=== PATIENT | female | born 1940 ===

== ENCOUNTER 2019-01-18 09:50 | Emergency (ER) | payer MEDICAID ==
[2019-01-18 09:51] VITALS: BMI 26.0
[2019-01-18 10:09] VITALS: RESP 18
--- NOTE | 2019-01-18 10:19 | ED PDOC ---
Arrival/HPI - General Historian: Patient - History of Present Illness Narrative History of Present Illness (Text): 01/18/19 10:21 78-year-old female with past medical history of diabetes on insulin, presents to the emergency room for wound check to the great toes of bilateral foot. Patient states that she was seen at [facility] on 01/13/2019 for similar symptoms and was placed on Keflex, she states that she has an appointment scheduled with her morphologist on Sunday01/22/19. She presents today to the emergency room due to pain to her great toes, and she wants to ensure that she does not have an infection to her toes today. Otherwise she reports no fever, chills, swelling, redness, numbness. Patient has no other complaints <Yancy Parnell PA-C - Last Filed: 01/18/19 10:36> <Mathew Lewis - Last Filed: 01/18/19 12:44> - General Time Seen by Provider: 01/18/19 09:54 Past Medical History - Cardiac Hx Hypertension: Yes - Endocrine/Metabolic Hx Diabetes Mellitus Type 2: Yes Hx Hypothyroidism: Yes - Psychiatric Hx Substance Use: No - Anesthesia Hx Anesthesia: No <Yancy Parnell PA-C - Last Filed: 01/18/19 10:36> Family/Social History Family/Social History: No Known Family HX Smoking Status: Never Smoked Hx Alcohol Use: No Hx Substance Use: No <Yancy Parnell PA-C - Last Filed: 01/18/19 10:36> Allergies/Home Meds <Yancy Parnell PA-C - Last Filed: 01/18/19 10:36> <Mathew Lewis - Last Filed: 01/18/19 12:44> Allergies/Adverse Reactions: Allergies No Known Allergies Allergy (Verified 01/13/19 18:55) Review of Systems - Review of Systems Constitutional: absent: Fatigue, Fevers Musculoskeletal: Arthralgias (+chronic R knee pain). absent: Back Pain, Neck Pain, Joint Swelling Skin: Other (wound to the great toes of b/l foot). absent: Rash, Pruritis, Skin Lesions Neurological: absent: Headache, Dizziness <Yancy Parnell PA-C. - Last Filed: 01/18/19 10:36> Physical Exam Vital Signs Temp Pulse Resp BP Pulse Ox 01/18/19 10:05 98.2 F 85 18 137/68 97 Temperature: Afebrile Blood Pressure: Normal Pulse: Regular Respiratory Rate: Normal Appearance: Positive for: Well-Appearing, Non-Toxic, Comfortable Pain Distress: None Mental Status: Positive for: Alert and Oriented X 3 Finger Stick Blood Glucose: 246 - Systems Exam Lower Extremity: Present: Normal Inspection, NORMAL PULSES, Normal ROM, Neurovascularly Intact, Capillary Refill < 2 s, Other (+hard callus to the medial volar R great toe without erythema, edema or TTP, +soft callus to the me dial volar L great toe without erythema, edema or TTP.). No: Edema, CALF TENDERNESS, Tenderness, Swelling, Erythema, Deformity, Temperature Abnormalties Neurological: Present: GCS=15, CN II-XII Intact, Speech Normal Skin: Present: Warm, Dry, Normal Color. No: Rashes Psychiatric: Present: Alert, Oriented x 3, Normal Insight, Normal Concentration <Yancy Parnell PA-C - Last Filed: 01/18/19 10:36> Vital Signs Temp Pulse Resp BP Pulse Ox 01/18/19 10:46 98 F 69 18 122/77 98 01/18/19 10:05 98.2 F 85 18 137/68 97 <Mathew Lewis - Last Filed: 01/18/19 12:44> Medical Decision Making ED Course and Treatment: 01/18/19 10:18 Previous medical records reviewed, patient was seen at [facility] on 01/13/2019 for similar symptoms, patient was prescribed Keflex and discharged home. Advised to follow up with podiatry on her scheduled appointment without fail. Advised to continue taking current antibiotic, advised on proper wound care. Given instructions on what to observe at home for evidence of infection. Return to the emergency room at any time for any new or worsening symptoms. Patient states she fully agrees with and understands discharge instructions. States that she agrees with the plan and disposition. Verbalized and repeated discharge instructions and plan. I have given the patient opportunity to ask any additional questions. <Yancy Parnell PA-C - Last Filed: 01/18/19 10:36> - PA / LANE ATTENDANT / Resident Statement ARA has reviewed & agrees with the documentation as recorded. <Yancy Parnell PA-C - Last Filed: 01/18/19 10:36> - PA / LANE ATTENDANT / Resident Statement ARA has reviewed & agrees with the documentation as recorded. <Mathew Lewis - Last Filed: 01/18/19 12:44> Disposition/Present on Arrival - Present on Arrival Any Indicators Present on Arrival: No History of DVT/PE: No History of Uncontrolled Diabetes: No Urinary Catheter: No History of Decub. Ulcer: No History Surgical Site Infection Following: None - Disposition Have Diagnosis and Disposition been Completed?: Yes Disposition Time: 10:15 Patient Plan: Discharge <Yancy Parnell PA-C - Last Filed: 01/18/19 10:36> <Mathew Lewis - Last Filed: 01/18/19 12:44> - Disposition Diagnosis: Visit for wound check Disposition: HOME/ ROUTINE Condition: STABLE Discharge Instructions (ExitCare): Corns and Calluses, Wound Care (DC) Print Language: POLISH Additional Instructions: Thank you for letting us take care of you today. You were treated for wound check. The emergency medical care you received today was directed at your acute symptoms. Clean would with regular soap and water. Continue current antibiotics. Return to the Emergency Department if your symptoms worsen, do not improve, or if you have any other problems. Please follow up with your scheduled appointment with your morphologist 2-3 days for re-evaluation and follow up. Bring any paperwork you were given at discharge with you along with any medications you are taking to your follow up visit. Our treatment cannot replace ongoing medical care by a primary care provider (PCP) outside of the emergency department. Thank you for allowing the [facility] team to be part of your care today. Forms: [employer] (German)
[2019-01-18] MEDS ORDERED: Bacitracin 500 Units/gm Oint Foilpak UD ONE (10:36)
[2019-01-18 10:47] VITALS: BP 122/77; PULSE 69; TEMP 98; O2SAT 98
== END 2019-01-18 10:46 | disposition home or self-care (01) ==
LOC: ED 09:50
DX: Z51.89 Encounter for other specified aftercare (principal); E11.9 Type 2 diabetes mellitus without complications; Z79.4 Long term (current) use of insulin